=== PATIENT | female | born 1965 | race Caucasian/White ===

== ENCOUNTER 2017-02-12 19:25 | Emergency (ER) | payer MEDICARE, MEDICAID ==
[2017-02-12] MEDS ORDERED: predniSONE TAB* 5 MG PO ONE (22:13)
[2017-02-12] MEDS ORDERED: Artificial Tear OPHTH.OINT* 3.5 GM BOTH EYES ONE (22:27)
[2017-02-12] MEDS ORDERED: Artificial Tears* 15 ML BTL BOTH EYES ONE (22:27)
--- NOTE | 2017-02-12 22:31 | ED ---
Delbert Ha Benjamin, scribed for Graciela Loera MD on 02/12/17 at 2152 . Neurological HPI - HPI Summary HPI Summary: 51yo female josh in by her daughter for having CVA like symptoms. Pt had a right sided facial droop and numbness today. Pt stated having left facial swelling yesterday morning. FHX of CVA. Pt is a smoker and has hx of back problems. 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 Onset/Duration: Sudden Onset, Started hours ago, Still Present Timing: Constant Onset Severity: Mild Current Severity: Mild Neurological Deficit Location: Facial - right Pain Intensity: 0 Pain Scale Used: 0-10 Numeric Character: Numbness/Tingling - right face - Additional Pertinent History Primary Care Physician: [id number] - Allergy/Home Medications Allergies/Adverse Reactions: Allergies Allergy/AdvReac Type Severity Reaction Status Date / Time Budesonide [From Symbicort] Allergy Unknown Verified 02/12/17 19:37 Reaction Details Clarithromycin [From Biaxin] Allergy Swelling Verified 02/12/17 19:37 Of Face,Lips,& Throat Ezetimibe [From Zetia] Allergy Muscle Ache Verified 02/12/17 19:37 Fenofibrate Allergy See Comment Verified 02/12/17 19:37 Formoterol [From Symbicort] Allergy Unknown Verified 02/12/17 19:37 Reaction Details Levofloxacin [From Levaquin] Allergy Congestion Verified 02/12/17 19:37 Moxifloxacin [From Avelox] Allergy Itching Verified 02/12/17 19:37 Nitrofurantoin Allergy Swelling Verified 02/12/17 19:37 Of Face,Lips,& Throat Simvastatin Allergy Rash Verified 02/12/17 19:37 Sulfa Drugs Allergy Swelling Verified 02/12/17 19:37 Of Face,Lips,& Throat Topiramate [From Topamax] Allergy See Comment Verified 02/12/17 19:37 MARIBEL Inhibitors AdvReac Coughing Verified 02/12/17 19:37 Milk Protein Extract AdvReac Coughing Verified 02/12/17 19:37 [From Spiriva] Tetracyclines & Related AdvReac Nausea And Verified 02/12/17 19:37 Vomiting Tiotropium [From Spiriva] AdvReac Coughing Verified 02/12/17 19:37 PMH/Surg Hx/FS Hx/Imm Hx Endocrine/Hematology History: Reports: Hx Thyroid Disease - hypo Denies: Hx Diabetes Cardiovascular History: Reports: Hx Hypertension Denies: Hx Pacemaker/ICD Respiratory History: Reports: Hx Asthma, Hx Chronic Obstructive Pulmonary Disease (COPD), Hx Sleep Apnea - current CPAP user GI History: Reports: Hx Hiatal Hernia Musculoskeletal History: Reports: Hx Back Problems - spinal stenosis, Other Musculoskeletal History - degenerative disc disease Sensory History: Reports: Hx Contacts or Glasses Denies: Hx Hearing Aid Opthamlomology History: Reports: Hx Contacts or Glasses Neurological History: Reports: Hx Headaches, Other Neuro Impairments/Disorders - PAIN CLINIC PATIENT Psychiatric History: Reports: Hx Depression - Pt states that she has had depression before Denies: Hx Panic Disorder - Cancer History Hx Chemotherapy: No Hx Radiation Therapy: No - Surgical History Surgery Procedure, Year, and Place: APPENDECTOMY,CHOLECYSECTOMY,HYSTERECTOMY, ANKLE REPAIR,TUBAL LIGATION, CERVICAL SPINE SURGERY 2013, LUMBAR SPINE SURGERY Infectious Disease History: No Infectious Disease History: Reports: Hx Shingles Denies: Traveled Outside the [place] in Last 30 Days - Family History Known Family History: Positive: Other - CVA - Social History Occupation: Employed Full-time Lives: With Family Alcohol Use: None Substance Use Type: Reports: Marijuana Substance Use Comment - Amount & Last Used: oxycontin Smoking Status (MU): Current Every Day Smoker Type: Cigarettes Amount Used/How Often: 1 PPD Length of Time of Smoking/Using Tobacco: 30 Have You Smoked in the Last Year: Yes Review of Systems Constitutional: Negative Eyes: Negative ENT: Negative Cardiovascular: Negative Respiratory: Negative Gastrointestinal: Negative Genitourinary: Negative Musculoskeletal: Negative Skin: Negative Neurological: Other - right facial droop Positive: Numbness - right face Psychological: Normal All Other Systems Reviewed And Are Negative: Yes Physical Exam Triage Information Reviewed: Yes Vital Signs On Initial Exam: Initial Vitals Temp Pulse Resp BP Pulse Ox 98.5 F 83 18 135/78 97 02/12/17 19:33 02/12/17 19:33 02/12/17 19:33 02/12/17 19:33 02/12/17 19:33 Vital Signs Reviewed: Yes Appearance: Positive: Well-Appearing, No Pain Distress, Well-Nourished Skin: Positive: Warm, Skin Color Reflects Adequate Perfusion, Dry Head/Face: Positive: Normal Head/Face Inspection Eyes: Positive: EOMI, RYAN, Conjunctiva Clear ENT: Positive: Normal ENT inspection, Hearing grossly normal Neck: Positive: Supple, Nontender Respiratory/Lung Sounds: Positive: Clear to Auscultation, Breath Sounds Present Cardiovascular: Positive: RRR, Pulses are Symmetrical in both Upper and Lower Extremities Abdomen Description: Positive: Nontender, Soft Bowel Sounds: Positive: Present Musculoskeletal: Positive: Normal, Strength/ROM Intact Neurological: Positive: Sensory/Motor Intact, Alert, Oriented to Person Place, Time, Facial Droop - right sided facial droop with decreased elevation of her right forehead Psychiatric: Positive: Affect/Mood Appropriate - Yareli Coma Scale Coma Scale Total: 15 Diagnostics - Vital Signs Vital Signs Temp Pulse Resp BP Pulse Ox 02/12/17 21:00 66 18 135/76 97 02/12/17 20:58 72 15 98 02/12/17 20:55 154/79 02/12/17 19:38 98.5 F 83 18 135/78 97 02/12/17 19:33 98.5 F 83 18 135/78 97 - Laboratory Lab Statement: Any lab studies that have been ordered have been reviewed, and results considered in the medical decision making process. Course/Dx - Course Course Of Treatment: Reviewed pts medication and allergy lists. Blood pressure noted. pt with bells palsy which involves the forehead. pt without lyme exposure but serology entered. - Diagnoses Provider Diagnoses: Dill's palsy Discharge - Discharge Plan Condition: Stable Disposition: HOME Prescriptions: ValACYclovir (*) [Valtrex 1 GM(*)] 1 gm PO TID #15 tab predniSONE TAB* [Deltasone TAB*] 40 mg PO BID #8 tab Patient Education Materials: Dill Palsy (ED) Referrals: Ward Sapp MD [Primary Care Provider] - The documentation as recorded by the Delbert smith Benjamin accurately reflects the service I personally performed and the decisions made by me, Graciela Loera MD.
[2017-02-12] MEDS ORDERED: predniSONE TAB* 20 MG PO ONE (23:00)
[2017-02-12 23:23] VITALS: BP 104/75
== END 2017-02-12 23:27 | disposition home or self-care (01) ==
LOC: ED 19:25
DX: G51.0 Bell's palsy (principal); F17.210 Nicotine dependence, cigarettes, uncomplicated
CPT/HCPCS: 86618; 99283; A9270-GY; J7512

== ENCOUNTER 2019-08-11 17:18 | Emergency (ER) | payer MEDICARE, MEDICAID ==
[2019-08-11 19:04] LABS: ABS Basophils 0.1 10^3/ul (0-0.2); ABS Eosinophils 0.1 10^3/ul (0-0.6); ABS Lymphocytes 2.6 10^3/ul (1.0-4.8); ABS Monocytes 0.8 10^3/ul (0-0.8); ABS Neutrophils 8.3 10^3/ul (1.5-7.7); Eosinophil % 0.7 %; Hematocrit 39 % (35-47); Hemoglobin 13.1 g/dL (12.0-16.0); Lymphocyte % 22.2 %; Mean Corpuscular HGB Conc 33 g/dL (31-36); Mean Corpuscular Hemoglobin 28 pg (27-31); Mean Corpuscular Volume 85 fL (80-97); Mean Platelet Volume 6.6 fL (7.4-10.4); Platelet Count 399 10^3/uL (150-450); Red Blood Count 4.65 10^6 /uL (3.70-4.87); Red Cell Distribution Width 17 % (10-15); White Blood Count 11.9 10^3/uL (3.5-10.8)
[2019-08-11 19:23] LABS: Albumin 3.7 g/dL (3.2-5.2); Albumin/Globulin Ratio 1.3 (1-3); BUN/Creatinine Ratio 8.6 (8-20); Calcium 9.6 mg/dL (8.6-10.3); EGFR African American 105.5 (>60); EGFR Non-African American 87.2 (>60); Globulin 2.8 g/dL (2-4); Potassium 3.2 mmol/L (3.5-5.0); Total Bilirubin 0.3 mg/dL (0.2-1.0); Total Protein 6.5 g/dL (6.4-8.9)
[2019-08-11 19:31] LABS: INR 1.01 (0.82-1.09)
[2019-08-11 20:04] VITALS: BP 151/75
== END 2019-08-11 20:40 | disposition left against medical advice (07) ==
LOC: ED 17:18
DX: M79.605 Pain in left leg (principal); Z53.21 Procedure and treatment not carried out due to patient leaving prior to being seen by health care provider
CPT/HCPCS: 36415; 80053; 83880; 85025; 85610; 93970; 99282